=== PATIENT | male | born 1980 | race Caucasian/White ===

== ENCOUNTER 2016-09-09 18:54 | Emergency (ER) | payer SELFPAY ==
[2016-09-09 19:01] VITALS: BP 130/74
[2016-09-09] MEDS ORDERED: ACETAMINOPHEN 325 MG TABLET PO ONE (19:04)
--- NOTE | 2016-09-09 19:04 | ER Document Report ---
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 A comprehensive ED assessment and evaluation of the patient, analysis of test results and completion of the medical decision making process will be conducted by additional ED providers.+h/a TRAVEL OUTSIDE OF THE [place] IN LAST 30 DAYS: No - Related Data Allergies/Adverse Reactions: No Known Allergies Allergy (Verified 09/09/16 19:01) Past Medical History - Immunizations Immunizations up to date: Yes Hx Diphtheria, Pertussis, Tetanus Vaccination: Yes Physical Exam - Vital signs Vitals: Temp Pulse Resp BP Pulse Ox 98.0 F 87 18 130/74 H 99 09/09/16 19:00 09/09/16 19:00 09/09/16 19:00 09/09/16 19:00 09/09/16 19:00 Course - Vital Signs Vital signs: Temp Pulse Resp BP Pulse Ox 98.0 F 87 18 130/74 H 99 09/09/16 19:00 09/09/16 19:00 09/09/16 19:00 09/09/16 19:00 09/09/16 19:00
[2016-09-09] MEDS ORDERED: KETOROLAC TROMETHAMINE 0.45% 4 DROP/0.4 ML DROPERETTE OD ONE (21:14)
[2016-09-09] MEDS ORDERED: POLYMYXIN B SULFATE/TMP OPH SOLN (10 ML/ER DISP) OD ONE (21:14)
[2016-09-09] MEDS ORDERED: HYDROCODONE/ACETAMINOPHEN 5-325 MG 6 TAB/DSPK PO PRN (21:19)
--- NOTE | 2016-09-09 21:20 | ER Document Report ---
ED Eye Complaint - General Mode of Arrival: Ambulatory Information source: Patient TRAVEL OUTSIDE OF THE [place] IN LAST 30 DAYS: No - HPI Patient complains to provider of: Right Eye Pain Onset: Other - 09/07/2016 Eye location: Right Occurred at: Work Associated symptoms: Pain, Redness, Eyelid swelling <SNATHOSH REID - Last Filed: 09/09/16 21:26> <JUSTIN RANDLE - Last Filed: 09/09/16 21:39> - General Chief Complaint: Eye Pain Stated Complaint: EYE PAIN Notes: Patient is a 35-year-old male presenting to the emergency department concerned of right eye pain and swelling onset 09/07/2016. 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 Patient denies any other symptoms or pain anywhere else. (SANTHOSH REID) - Related Data Allergies/Adverse Reactions: No Known Allergies Allergy (Verified 09/09/16 19:01) Past Medical History - Social History Smoking Status: Current Every Day Smoker Cigarette use (# per day): Yes Chew tobacco use (# tins/day): No Frequency of alcohol use: None Drug Abuse: None Lives with: Family Family History: Reviewed & Not Pertinent Patient has suicidal ideation: No Patient has homicidal ideation: No - Immunizations Immunizations up to date: Yes Hx Diphtheria, Pertussis, Tetanus Vaccination: Yes <SANTHOSH REID - Last Filed: 09/09/16 21:26> Review of Systems - Review of Systems Constitutional: No symptoms reported EENT: See HPI, Eye pain - Right, Other - Swelling around right eye Cardiovascular: No symptoms reported Respiratory: No symptoms reported Gastrointestinal: No symptoms reported Genitourinary: No symptoms reported Male Genitourinary: No symptoms reported Musculoskeletal: No symptoms reported Skin: No symptoms reported Hematologic/Lymphatic: No symptoms reported Neurological/Psychological: No symptoms reported -: Yes All other systems reviewed and negative <SANTHOSH REID - Last Filed: 09/09/16 21:26> Physical Exam - General General appearance: Alert - HEENT Head: Normocephalic, Atraumatic, Other - swollen preauricular lymph node Eyes: Periorbital edema - Chemosis, Other - Injected conjunctiva Cornea: Corneal abrasion - Oval-shaped vertically oriented abrasion just inside the limbus of lateral aspect of right cornea. - Respiratory Respiratory status: No respiratory distress Breath sounds: Normal - Cardiovascular Rhythm: Regular - Abdominal Inspection: Normal - Back Back: Normal, Nontender - Extremities General upper extremity: Normal inspection General lower extremity: Normal inspection - Neurological Neuro grossly intact: Yes Cognition: Normal Vern Coma Scale Eye Opening: Spontaneous [place] Coma Scale Verbal: Oriented [place] Coma Scale Motor: Obeys Commands [place] Coma Scale Total: 15 Speech: Normal - Psychological Associated symptoms: Normal affect, Normal mood - Skin Skin Temperature: Warm Skin Moisture: Dry Skin Color: Other - See eye exam <SANTHOSH REID - Last Filed: 09/09/16 21:26> Course <SANTHOSH REID - Last Filed: 09/09/16 21:26> - Consults Dr. Camacho Time consulted: 21:20 Consulted provider: follow-up in office - Call in the morning for an appointment. <JUSTIN RANDLE - Last Filed: 09/09/16 21:39> - Re-evaluation Re-evalutation: 09/09/16 21:36 PROCEEDURE: The right eye was anesthetized with tetracaine drops. Fluorescein stain was placed in the eye. There was a vertically oriented oval or elliptical abrasion at the 9 o'clock position along the limbus. There is also considerable ecchymosis in the lateral eye with injection. The upper and lower eyelids are swollen and erythemic in the lateral aspect. There was also a preauricular node felt on the right side. The stain was irrigated out with normal saline. Homatropine drops were placed in the right eye. Ketorolac drops was placed in the right eye. 2 Naye Manjit sulfate drops were placed in the right eye. Patient was discharged home with Protonix and sulfate to put 2 drops in the eye every 6 hours, with the ketorolac eyedrops to place one drop in the right eye every 4 hours, and with a [place] dispense pack. He is to follow-up with Dr. Camacho tomorrow at [facility], he is to call in the morning for an appointment. (JUSTIN RANDLE) - Vital Signs Vital signs: Temp Pulse Resp BP Pulse Ox 98.0 F 87 18 130/74 H 99 09/09/16 19:00 09/09/16 19:00 09/09/16 19:00 09/09/16 19:00 09/09/16 19:00 (SANTHOSH REID) (JUSTIN RANDLE) Discharge <SANTHOSH REID - Last Filed: 09/09/16 21:26> <JUSTIN RANDLE - Last Filed: 09/09/16 21:39> - Discharge Clinical Impression: Chemical conjunctivitis of right eye Corneal abrasion Qualifiers: Encounter type: initial encounter Laterality: right Qualified Code(s): S05.01XA - Injury of conjunctiva and corneal abrasion without foreign body, right eye, initial encounter Condition: Stable Disposition: HOME, SELF-CARE Additional Instructions: PUT THE POLYMYXIN EYE DROPS IN THE RIGHT EYE---2 DROPS EVERY 6 HOURS. PUT THE DISPENSED KETOROLAC EYE DROPS---ONE DROP IN THE RIGHT EYE EVERY FOUR HOURS. USE COOL COMPRESSES TO THE EYE. CALL DR. CAMACHO AT [facility] TOMORROW MORNING FOR A FOLLOW UP APPOINTMENT. RETURN TO THE EMERGENCY ROOM IF ANY NEW OR WORSENING SYMPTOMS. Referrals: JENNIFER CAMACHO MD [ACTIVE STAFF] - Follow up tomorrow (Call the office in the morning for an appointment.) Scribe Documentation - Scribe Written by Scribe:: Santhosh Reid [id number] acting as scribe for :: Radha <SANTHOSH REID - Last Filed: 09/09/16 21:26>
== END 2016-09-09 21:45 | disposition home or self-care (01) ==
LOC: ER 18:54
DX: S05.01XA Injury of conjunctiva and corneal abrasion without foreign body, right eye, initial encounter (principal); W20.8XXA Other cause of strike by thrown, projected or falling object, initial encounter; Y99.0 Civilian activity done for income or pay; F17.210 Nicotine dependence, cigarettes, uncomplicated; H10.211 Acute toxic conjunctivitis, right eye
CPT/HCPCS: 99283; J3490

== ENCOUNTER 2019-03-30 20:02 | Emergency (ER) | payer SELFPAY ==
[2019-03-30] MEDS ORDERED: HYDROCODONE/ACETAMINOPHEN 5-325 MG TABLET PO ONE (21:01)
--- NOTE | 2019-03-30 21:03 | ER Document Report ---
ED Medical Screen (RME) - General Chief Complaint: Rectal Abscess Stated Complaint: BUTTOCK PAIN Time Seen by Provider: 03/30/19 20:57 Notes: Patient is a 38-year-old male who presents to the emergency department with a chief complaint of possible abscess. Patient states that on Friday he noticed a discomfort and small bump to the right upper buttocks. Patient states since then it has gotten bigger and more painful. Patient states it is hard to tell but he believes it has been draining some. Patient denies a history of abscess or MRSA. 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 Patient denies fever. Patient reports he is having left groin discomfort as he feels like he has a swollen lymph node. TRAVEL OUTSIDE OF THE [place] IN LAST 30 DAYS: No - Related Data Allergies/Adverse Reactions: No Known Allergies Allergy (Verified 09/09/16 19:01) Past Medical History Renal/ Medical History: Denies: Hx Peritoneal Dialysis - Immunizations Immunizations up to date: Yes Hx Diphtheria, Pertussis, Tetanus Vaccination: Yes Physical Exam - Vital signs Vitals: Temp Pulse Resp BP Pulse Ox 98.7 F 74 18 127/82 H 97 03/30/19 20:42 03/30/19 20:42 03/30/19 20:42 03/30/19 20:42 03/30/19 20:42 - Skin Notes: There is a 3 x 3 cm area of erythema with a white center that is not currently draining. It is firm and tender to touch. Course - Re-evaluation Re-evalutation: 03/30/19 21:03 I have greeted and performed a rapid initial assessment of this patient. A comprehensive ED assessment and evaluation of the patient, analysis of test results and completion of the medical decision making process will be conducted by additional ED providers. - Vital Signs Vital signs: Temp Pulse Resp BP Pulse Ox 98.7 F 74 18 127/82 H 97 03/30/19 20:42 03/30/19 20:42 03/30/19 20:42 03/30/19 20:42 03/30/19 20:42
[2019-03-30] MEDS ORDERED: CEPHALEXIN 500 MG CAPSULE PO ONE (23:14)
[2019-03-30] MEDS ORDERED: SULFAMETHOXAZOLE/TRIMETHOPRIM 800-160 MG TABLET PO ONE (23:14)
--- NOTE | 2019-03-30 23:19 | ER Document Report ---
ED General - General Chief Complaint: Rectal Abscess Stated Complaint: BUTTOCK PAIN Time Seen by Provider: 03/30/19 20:57 TRAVEL OUTSIDE OF THE [place] IN LAST 30 DAYS: No - HPI Notes: Patient is a 38-year-old male that presents to the emergency department for chief complaint of abscess. Patient states he noticed an area of redness and swelling on his upper left gluteal region 3 days ago. He states it became more swollen and painful. Patient states he was "messing with it" and caused some drainage of the area. He denies any associated fever, chills, painful bowel movements and he denies history of abscess. He denies injury to the area. Patient did receive Percocet in triage which improved his pain. Past Medical History: Negative Past Surgical History: Negative Social History: Daily tobacco Family History: Reviewed and noncontributory for presenting illness Allergies: Reviewed, see documented allergy list. REVIEW OF SYSTEMS: CONSTITUTIONAL : No fever No chills No diaphoresis No recent illness EENT: No vision changes No congestion No sore throat CARDIOVASCULAR: No chest pain No palpitations RESPIRATORY: No shortness of breath No cough No difficulty breathing GASTROINTESTINAL: No abdominal pain No nausea No vomiting No diarrhea GENITOURINARY: No dysuria No hematuria No difficulty urinating MUSCULOSKELETAL: No back pain No leg pain No arm pain SKIN: No rashes Gluteal lesions LYMPHATIC: No swollen, enlarged glands. NEUROLOGICAL: No lightheadedness No headache No weakness No paresthesias PSYCHIATRIC: No anxiety No depression PHYSICAL EXAMINATION: Vital signs reviewed, nursing noted reviewed. GENERAL: Well-appearing, well-nourished and in no acute distress. HEAD: Atraumatic, normocephalic. EYES: Eyes appear normal, extraocular movements intact, sclera anicteric, conjunctiva are normal. ENT: nares patent, oropharynx clear without exudates. Moist mucous membranes. NECK: Normal range of motion, supple without lymphadenopathy LUNGS: Breath sounds clear to auscultation bilaterally and equal. No wheezes rales or rhonchi. HEART: Regular rate and rhythm without murmurs ABDOMEN: Soft, nontender, normoactive bowel sounds. No rebound, guarding, or rigidity. No masses appreciated. EXTREMITIES: Nontender, good range of motion, no pitting or edema. NEUROLOGICAL: No focal neurological deficits. Moves all extremities spontaneously Motor and sensory grossly intact on exam. PSYCH: Normal mood, normal affect. SKIN: Warm, Dry, normal turgor, 2.0 x 3.0 cm pilonidal cyst just left of center with 1.0 cm linear opening, trace purulent drainage, no fluctuance. - Related Data Allergies/Adverse Reactions: No Known Allergies Allergy (Verified 09/09/16 19:01) Past Medical History - Social History Smoking Status: Never Smoker Family History: Reviewed & Not Pertinent Patient has suicidal ideation: No Patient has homicidal ideation: No Renal/ Medical History: Denies: Hx Peritoneal Dialysis - Immunizations Immunizations up to date: Yes Hx Diphtheria, Pertussis, Tetanus Vaccination: Yes Physical Exam - Vital signs Vitals: Temp Pulse Resp BP Pulse Ox 98.7 F 74 18 127/82 H 97 03/30/19 20:42 03/30/19 20:42 03/30/19 20:42 03/30/19 20:42 03/30/19 20:42 Course - Re-evaluation Re-evalutation: 03/30/19 23:18 Vitals reviewed. Nursing notes reviewed. Patient has an area consistent with pilonidal abscess. He has drained it himself at home and there is an opening measuring about 1 cm over the area. I do not appreciate any further fluctuance requiring further incision and drainage in the emergency room. Patient will be started on antibiotics. He will be referred to surgery for follow-up. He was told to return for any increased redness pain or swelling. Patient in agreement with plan of care and stable at discharge. - Vital Signs Vital signs: Temp Pulse Resp BP Pulse Ox 98.7 F 74 18 127/82 H 97 03/30/19 20:42 03/30/19 20:42 03/30/19 20:42 03/30/19 20:42 03/30/19 20:42 Discharge - Discharge Clinical Impression: Pilonidal abscess Condition: Stable Disposition: HOME, SELF-CARE Instructions: Cephalexin ([facility]), Trimethoprim-Sulfa ([facility]), Abscess ([facility]) Additional Instructions: Please return to the emergency department if you have any worsening, or concern of your symptoms. Please return to the emergency department if you develop fever, increased redness or swelling at the affected area, severe abdominal pain, or ongoing vomiting. Please follow-up with your primary care physician in 2-3 days and any other recommended physicians. If prescribed, take all medications as directed. If you have any questions or concerns do not hesitate to return the emergency department for evaluation. Prescriptions: Cephalexin Monohydrate [Keflex 500 mg Capsule] 500 mg PO BID 10 Days capsule Sulfamethoxazole/Trimethoprim [Bactrim Ds Tablet] 1 each PO BID #20 tablet Referrals: MOIZ PINZON MD [ACTIVE STAFF] - Follow up as needed
[2019-03-30 23:33] VITALS: BP 125/79
== END 2019-03-30 23:33 | disposition home or self-care (01) ==
LOC: ER 20:02
DX: L05.01 Pilonidal cyst with abscess (principal)